=== PATIENT | female | born 1970 | race Caucasian/White ===

== ENCOUNTER 2019-08-09 11:09 | Emergency (ER) | payer OTHER ==
[~2019-08-09] VITALS: Ht 167.6 cm; Wt 101.6 kg
[2019-08-09] MEDS ORDERED: JANUVIA100 MG PO (13:26)
[2019-08-09] MEDS ORDERED: OMEPRAZOLE20 MG PO (13:28)
[2019-08-09] MEDS ORDERED: LYRICA150 MG PO (13:28)
[2019-08-09] MEDS ORDERED: VERAPAMIL ER240 M1 PO (13:29)
[2019-08-09] MEDS ORDERED: COLACE100 MG PO (13:29)
[2019-08-09] MEDS ORDERED: AMITIZA24 MCG PO (13:30)
[2019-08-09] MEDS ORDERED: GLUCOPHAGE500 MG PO (13:31)
[2019-08-09] MEDS ORDERED: AZULFIDINE500 M1 PO (13:31)
[2019-08-09] MEDS ORDERED: MAG-OXIDE400 MG PO (13:32)
[2019-08-09] MEDS ORDERED: TORSEMIDE20 MG PO (13:32)
[2019-08-09] MEDS ORDERED: BUSPIRONE HCL30 MG PO (13:33)
[2019-08-09] MEDS ORDERED: BRINTELLIX20 MG PO (13:33)
[2019-08-09] MEDS ORDERED: ATORVASTATIN CA20 MG PO (13:34)
[2019-08-09] MEDS ORDERED: IMURAN50 MG PO (13:34)
[2019-08-09] MEDS ORDERED: GEODON60 MG PO (13:35)
[2019-08-09] MEDS ORDERED: TOPROL XL50 MG PO (13:35)
[2019-08-09] MEDS ORDERED: GEODON80 MG PO (13:35)
[2019-08-09] MEDS ORDERED: SYNTHROID300 MCG PO (13:36)
[2019-08-09] MEDS ORDERED: VITAMIN D21250 MCG PO (13:36)
[2019-08-09] MEDS ORDERED: BENADRYL25 MG PO (13:37)
[2019-08-09] MEDS ORDERED: ZOFRAN4 MG PO (13:38)
[2019-08-09] MEDS ORDERED: TRAZODONE HCL100 MG PO (13:39)
[2019-08-09] MEDS ORDERED: BASAGLAR K100 UNIT/1 SUB-Q (13:39)
[2019-08-09] MEDS ORDERED: ZANAFLEX4 M1 PO (13:39)
[2019-08-09] MEDS ORDERED: CATAPRES-TTS 31 EACH TOP (13:41)
[2019-08-09] MEDS ORDERED: BUTRANS1 EAC1 TOP (13:42)
--- OUTSIDE RECORDS SUMMARY | 2019-08-09 18:30 | XMS ---
PreManage Notification: MARINA CHANDRA Security Life Skills Instructor Events No recent Security Events currently on file CRITERIA MET - History of Sepsis Dx [facility]Current PHONE: [phone] STEVIE LEVINE Physician Party Plan Demonstrator 08/03/2018-Current PHONE: [phone] Saige Hall Sales And Distribution Clerk/Glaze Wiper 03/13/2019-Current PHONE: [phone] [facility] 03/13/2019-Current PHONE: [phone] Guidelines Source: Ildefonso Crain Guidelines Date: 10/03/2018 Care Coordination: Currently engaged in mental health services with [facility].\T\nbsp; Please contact [facility] with mental health concerns.\T\nbsp; Claritza/Zhang Noyola: \T\nbsp; [phone]\T\nbsp; Zabrina:\T\nbsp; [phone]. E.D. VISIT COUNT (12 MO.) 1 [facility] 1 Alirio Hoffman Nadia TOTAL 7 NOTE: Visits indicate total known visits. ED/UCC VISIT TRACKING (12 MO.) 08/09/2019 11:11 LACEY [facility] TYPE: Emergency COMPLAINT: - CONFUSION 06/21/2019 06:39 LACEY Manzano TYPE: Emergency COMPLAINT: - HEADACHE/NAUSEA DIAGNOSES: - Dependence on supplemental oxygen - FPC (current) use of insulin - Other nonmedicinal substance allergy status - Hypothyroidism, unspecified - Calculus of gallbladder w chronic cholecyst w/o obstruction - Essential (primary) hypertension - Chronic obstructive pulmonary disease, unspecified - Nicotine dependence, unspecified, uncomplicated - 1 Type 2 diabetes mellitus without complications - Other nursing home (current) drug therapy - Headache - Rheumatoid arthritis, unspecified - Allergy status to other antibiotic agents status - Allergy status to oth drug/meds/biol subst status 06/06/2019 11:30 [facility] TYPE: Emergency DIAGNOSES: - Non-ST elevation (NSTEMI) myocardial infarction - Chronic obstructive pulmonary disease w (acute) exacerbation - Chest pain, unspecified - Chest Pain 06/06/2019 07:01 [facility] [place] TYPE: Emergency COMPLAINT: - LOW BLOOD SUGAR, SOB DIAGNOSES: - Nicotine dependence, unspecified, uncomplicated - Chronic obstructive pulmonary disease, unspecified - Bipolar disorder, unspecified - Shortness of breath - Essential (primary) hypertension - Non-ST elevation (NSTEMI) myocardial infarction - Allergy status to oth drug/meds/biol subst status - Allergy status to other antibiotic agents status - 1 Type 2 diabetes mellitus without complications - Other nursing home (current) drug therapy - Hypothyroidism, unspecified - Other nonmedicinal substance allergy status - FPC (current) use of insulin 01/17/2019 16:35 [facility] [place] TYPE: Emergency COMPLAINT: - SOB DIAGNOSES: - Rheumatoid arthritis, unspecified - Local infection of the skin and subcutaneous tissue, unsp - Chronic obstructive pulmonary disease, unspecified - Nicotine dependence, unspecified, uncomplicated - Allergy status to oth drug/meds/biol subst status - Anxiety disorder, unspecified - 1 Type 2 diabetes mellitus without complications - director long term care (current) use of insulin - Other nursing home (current) drug therapy - Other nonmedicinal substance allergy status - Allergy status to other antibiotic agents status - Hypothyroidism, unspecified - Bipolar disorder, unspecified - Pruritus, unspecified - Essential (primary) hypertension 12/21/2018 14:25 [facility] [place] TYPE: Emergency COMPLAINT: - HEADACHE, VOMITING DIAGNOSES: - Headache - 1 Type 2 diabetes mellitus without complications - Bipolar disorder, unspecified - Allergy status to oth drug/meds/biol subst status - Post-traumatic stress disorder, unspecified - Other buttermaker helper (current) drug therapy - Migraine, unsp, not intractable, without status migrainosus - Other nonmedicinal substance allergy status - Essential (primary) hypertension - Chronic obstructive pulmonary disease, unspecified - Allergy status to other antibiotic agents status - FPC (current) use of insulin - Nicotine dependence, unspecified, uncomplicated 10/03/2018 08:28 Alirio [facility] TYPE: Emergency DIAGNOSES: - Other acute kidney failure - Acute respiratory failure with hypoxia - Altered - Pneumonia, unspecified organism - Altered Mental Status - Acute respiratory failure with hypercapnia - Metabolic encephalopathy INPATIENT VISIT TRACKING (12 MO.) 06/21/2019 15:33 Nigel COTTON TYPE: Medical Surgical COMPLAINT: - CHOLECYSTITIS 06/06/2019 11:30 [facility] Shanita Rodas [place] TYPE: Internal Medicine DIAGNOSES: - Chest pain, unspecified - Non-ST elevation (NSTEMI) myocardial infarction - Chronic obstructive pulmonary disease w (acute) exacerbation 10/03/2018 08:28 Alirio [facility] TYPE: Critical Care DIAGNOSES: - Pneumonia, unspecified organism - Other acute kidney failure - Acute respiratory failure with hypercapnia - Acute respiratory failure with hypoxia - Metabolic encephalopathy [email or web address]
--- NOTE | 2019-08-10 20:49 | EKG ---
[facility] [address] [place], [place] [address] Signed Sinus rhythm with 1st degree AV block Left axis deviation Possible Anterolateral infarct , age undetermined Abnormal ECG No previous ECGs available Confirmed by ALICIA FLORIAN DO ([id number]) on 08/10/2019 8:49:06 PM Electronically Signed By: ALICIA FLORIAN DO 08/10/19 2049 PATIENT NAME: MARINA CHANDRA Electrocardiogram DATE OF : 72 PHYSICIAN: ALICIA FLORIAN DO REPORT #: [id number] REPORT IS CONFIDENTIAL AND NOT TO BE RELEASED WITHOUT AUTHORIZATION
== END 2019-08-09 18:29 | disposition short-term general hospital (02) ==
LOC: ED 11:09 → EDBD 11:11 → ED 11:11
DX: J96.90 Respiratory failure, unspecified, unspecified whether with hypoxia or hypercapnia (principal); J44.9 Chronic obstructive pulmonary disease, unspecified; E11.9 Type 2 diabetes mellitus without complications; F17.200 Nicotine dependence, unspecified, uncomplicated; Z79.84 Long term (current) use of oral hypoglycemic drugs; Z79.899 Other long term (current) drug therapy
CPT/HCPCS: 36415; 51701; 70450; 71045; 80053; 80176; 81001; 82803; 83880; 84439; 84443; 85025; 93005; 93010; 94660; 99285-25; G0480; J2060; J2310; J7030